=== PATIENT | male | born 1955 | race Caucasian/White ===

== ENCOUNTER → 2017-02-06 | Outpatient (CLI) | payer OTHER | END | disposition home or self-care (01) | LOC: RAD 10:33 | DX: S39.92XA Unspecified injury of lower back, initial encounter (principal); G89.29 Other chronic pain; M47.896 Other spondylosis, lumbar region; M51.36 Other intervertebral disc degeneration, lumbar region; X58.XXXA Exposure to other specified factors, initial encounter; Y93.89 Activity, other specified; Y92.89 Other specified places as the place of occurrence of the external cause; Y99.8 Other external cause status ==

== ENCOUNTER → 2017-02-22 | Outpatient (CLI) | payer OTHER | END | disposition home or self-care (01) | LOC: MRI 02-14 13:00 | DX: M48.07 Spinal stenosis, lumbosacral region (principal); M51.36 Other intervertebral disc degeneration, lumbar region; M48.06 Spinal stenosis, lumbar region; M51.26 Other intervertebral disc displacement, lumbar region; M47.896 Other spondylosis, lumbar region; M48.00 Spinal stenosis, site unspecified ==

== ENCOUNTER → 2018-05-15 | Outpatient (CLI) | payer MEDICARE | END | disposition home or self-care (01) | LOC: CT 10:00 | DX: J32.1 Chronic frontal sinusitis (principal); H55.00 Unspecified nystagmus; H93.13 Tinnitus, bilateral; R42 Dizziness and giddiness ==

== ENCOUNTER → 2019-06-21 | Outpatient (CLI) | payer MEDICARE ==
[2019-06-21 10:10] VITALS: BP 125/61
[2019-06-21 10:22] VITALS: BP 117/70
== END | disposition home or self-care (01) ==
LOC: PHLEB 09:25
DX: D75.1 Secondary polycythemia (principal)